=== PATIENT | female | born 1930 | race Caucasian/White ===

== ENCOUNTER 2021-02-27 16:24 | Observation (INO) | payer MEDICARE, OTHER ==
[2021-02-27] MEDS ORDERED: EPINEPHrine 1:10,000 1 MG/10 ML Syringe IVPUSH PRN (16:51)
[2021-02-27] MEDS ORDERED: Lidocaine 2% 100 MG/5 ML Syringe IVPUSH PRN (16:51)
[2021-02-27] MEDS ORDERED: Nitroglycerin 0.4 MG Tab.SL SL PRN (16:51)
[2021-02-27] MEDS ORDERED: Atropine 0.1 MG/ML 10 ML Syringe IVPUSH PRN (16:51)
[2021-02-27] MEDS ORDERED: Iopamidol 755 Mg/ML 75 ML Bottle IVPUSH ONE (17:22)
[2021-02-27] MEDS ORDERED: Sodium Chloride 0.9% 50 ML IV SCH (17:30)
--- NOTE | 2021-02-27 17:34 | CT ---
[id number] CT/CT Abdomen Pelvis W IV EXAM: CT Abdomen Pelvis W IV CLINICAL DATA: ABDOMINAL PAIN COMPARISON: CORRELATION IS MADE WITH THE CAT SCAN OF MARCH 26, 2016 FINDINGS: Thickening of the wall of the right side of the large bowel is stable since the last CAT scan The liver and spleen are unremarkable There are heavy atheromatous calcifications The adrenals, kidneys, and pancreas are also unremarkable The gallbladder has been removed The mesenteric vessels demonstrate normal enhancement The pelvis shows no mass or adenopathy The uterus and ovaries have been removed There is diverticular disease of the large bowel without diverticulitis IMPRESSION: NO ACUTE PROCESS. Colten Mayes MD 02/27/21 [id number] Thank you for allowing us to participate in the care of your patient.
[2021-02-27] MEDS: Pantoprazole 40 MG Vial IVPUSH SCH (18:00)
[2021-02-27] MEDS: Sodium Chloride 0.9% 1,000 ML IV SCH (18:05)
[2021-02-27] MEDS ORDERED: Acetaminophen 325 MG Tab PO PRN (19:17)
--- NOTE | 2021-02-27 20:28 | CT ---
[id number] CT/CT Head WO IV EXAM: CT Head WO IV CLINICAL DATA: TRAUMA COMPARISON: CORRELATION IS MADE WITH FEBRUARY 03, 2016 FINDINGS: There is a stable parafalcine meningioma. There appear to surgical changes of the mastoid air cells and middle ear There is no hemorrhage or hydrocephalus. There are no extra-axial fluid collections. There are no sites of abnormal attenuation. IMPRESSION: NO PLAIN CT EVIDENCE OF ACUTE INTRACRANIAL PROCESS. Colten Mayes MD 02/27/212026 Thank you for allowing us to participate in the care of your patient.
[2021-02-28] MEDS: Pantoprazole 40 MG Vial IVPUSH SCH ×3 (06:04→17:40)
[2021-02-28] MEDS: Levothyroxine 100 MCG Tab **OWN MED PO SCH ×2 (06:04→06:29)
[2021-02-28] MEDS ORDERED: Levothyroxine 100 MCG Tab PO SCH (07:00)
[2021-02-28 08:31] LABS: ANION GAP 11.7 mmol/L (5-15); CHLORIDE,CL 101 mmol/L (98-107); SODIUM,NA 135 mmol/L (136-145)
[2021-02-28] MEDS ORDERED: Ferrous Sulfate 325 MG Tab PO SCH (08:36)
--- NOTE | 2021-02-28 09:12 | PCM.PN ---
- General Info Date of Service: 02/28/21 Functional Status: Reports: Pain Controlled, Tolerating Diet, Urinating. Denies: New Symptoms - Review of Systems General: Reports: Fatigue. Denies: Fever, Chills HEENT: Reports: Headaches (improved) Pulmonary: Reports: No Symptoms Cardiovascular: Reports: No Symptoms Gastrointestinal: Reports: Abdominal Pain (improved), Decreased Appetite (poor appetite recently, eating adequately today). Denies: Constipation, Nausea Genitourinary: Reports: No Symptoms. Denies: Dysuria, Frequency, Urgency, Hematuria, Flank Pain Musculoskeletal: Reports: No Symptoms Skin: Reports: Pallor Neurological: Reports: No Symptoms Psychiatric: Reports: No Symptoms - Patient Data Vitals - Most Recent: Last Vital Signs Temp 96.6 F L 02/28/21 06:22 Pulse 71 02/28/21 06:22 Resp 20 02/28/21 06:22 BP 109/57 L 02/28/21 06:22 Pulse Ox 94 L 02/28/21 06:22 Weight - Most Recent: 98 lb 8 oz I&O - Last 24 Hours: Intake & Output 02/27/21 02/28/21 02/28/21 22:59 06:59 14:59 Intake Total 780 856 Output Total 600 Balance 780 256 Lab Results Last 24 Hours: Laboratory Results - last 24 hr 02/27/21 02/27/21 02/27/21 Range/Units 16:35 17:00 19:05 WBC (5.00-10.00) 10^3/uL RBC (3.80-5.50) 10^6/uL Hgb (12.0-16.0) g/dL Hct (37.0-47.0) % MCV (82.0-92.0) fL MCH (27.0-31.0) pg MCHC (32.0-36.0) g/dL RDW (11.5-14.5) % Plt Count (150-400) 10^3/uL MPV (7.4-10.4) fL Immature Gran % (Auto) (0.0-5.0) % Neut % (Auto) (50.0-70.0) % Lymph % (Auto) (20.0-40.0) % [place] % (Auto) (2.0-8.0) % Eos % (Auto) (1.0-3.0) % Baso % (Auto) (0.0-1.0) % Neut # (Auto) (2.50-7.00) 10^3/uL Lymph # (Auto) (1.00-4.00) 10^3/uL [place] # (Auto) (0.10-0.80) 10^3/uL Eos # (Auto) (0.10-0.30) 10^3/uL Baso # (Auto) (0.00-0.10) 10^3/uL Immature Gran # (Auto) (0.00-0.50) 10^3/uL Elliptocytes PT (9.2-11.2) SEC INR (0.9-1.1) APTT (22.8-31.4) SEC Sodium (136-145) mmol/L Potassium (3.5-5.1) mmol/L Chloride (98-107) mmol/L Carbon Dioxide (21.0-32.0) mmol/L Anion Gap (5-15) mmol/L BUN (7-18) mg/dL Creatinine (0.51-1.17) mg/dL Est Cr Clr Drug Dosing mL/min Estimated GFR (MDRD) mL/min Glucose (70-140) mg/dL Calcium (8.7-10.3) mg/dL Specimen Type Urinvoid Urine Color Yellow (YELLOW) Urine Appearance Slightly cloudy H (CLEAR) Urine pH 6.0 (5.0-9.0) Ur Specific Sandwich 1.010 (1.005-1.030) Urine Protein Negative (NEGATIVE) mg/dL Urine Glucose (UA) Negative (NEGATIVE) mg/dL Urine Ketones Negative (NEGATIVE) mg/dL Urine Occult Blood Trace-intact H (NEGATIVE) Urine Nitrite Positive H (NEGATIVE) Urine Bilirubin Negative (NEGATIVE) Urine Urobilinogen 0.2 (0.2-1.0) E.U./dL Ur Leukocyte Esterase Negative (NEGATIVE) Urine RBC 0-5 (0-5) /HPF Urine WBC 20-30 H (0-5) /HPF Ur Epithelial Cells Moderate H /LPF Urine Bacteria Many H (NONE TO FEW) /HPF SARS CoV-2 RNA Rapid NOLAN Negative (NEGATIVE) Blood Type A POSITIVE Gel Antibody Screen Negative Crossmatch See Detail 02/27/21 02/28/21 02/28/21 Range/Units 22:55 08:00 08:00 WBC 4.92 L 4.44 L (5.00-10.00) 10^3/uL RBC 3.87 4.22 (3.80-5.50) 10^6/uL Hgb 7.6 L 8.2 L (12.0-16.0) g/dL Hct 25.1 L 27.2 L (37.0-47.0) % MCV 64.9 L D 64.5 L (82.0-92.0) fL MCH 19.6 L 19.4 L (27.0-31.0) pg MCHC 30.3 L 30.1 L (32.0-36.0) g/dL RDW 23.6 H 23.7 H (11.5-14.5) % Plt Count 341 366 (150-400) 10^3/uL MPV 9.0 9.3 (7.4-10.4) fL Immature Gran % (Auto) 0.0 0.0 (0.0-5.0) % Neut % (Auto) 64.3 52.8 (50.0-70.0) % Lymph % (Auto) 21.3 32.2 (20.0-40.0) % [place] % (Auto) 13.4 H 13.7 H (2.0-8.0) % Eos % (Auto) 0.0 L 0.2 L (1.0-3.0) % Baso % (Auto) 1.0 1.1 H (0.0-1.0) % Neut # (Auto) 3.16 2.34 L (2.50-7.00) 10^3/uL Lymph # (Auto) 1.05 1.43 (1.00-4.00) 10^3/uL [place] # (Auto) 0.66 0.61 (0.10-0.80) 10^3/uL Eos # (Auto) 0.00 L 0.01 L (0.10-0.30) 10^3/uL Baso # (Auto) 0.05 0.05 (0.00-0.10) 10^3/uL Immature Gran # (Auto) 0.00 0.00 (0.00-0.50) 10^3/uL Elliptocytes 1+ slight PT (9.2-11.2) SEC INR (0.9-1.1) APTT (22.8-31.4) SEC Sodium 135 L (136-145) mmol/L Potassium 3.5 (3.5-5.1) mmol/L Chloride 101 (98-107) mmol/L Carbon Dioxide 25.8 (21.0-32.0) mmol/L Anion Gap 11.7 (5-15) mmol/L BUN 8 (7-18) mg/dL Creatinine 0.66 (0.51-1.17) mg/dL Est Cr Clr Drug Dosing 41.56 mL/min Estimated GFR (MDRD) > 60 mL/min Glucose 99 (70-140) mg/dL Calcium 7.5 L (8.7-10.3) mg/dL Specimen Type Urine Color (YELLOW) Urine Appearance (CLEAR) Urine pH (5.0-9.0) Ur Specific Sandwich (1.005-1.030) Urine Protein (NEGATIVE) mg/dL Urine Glucose (UA) (NEGATIVE) mg/dL Urine Ketones (NEGATIVE) mg/dL Urine Occult Blood (NEGATIVE) Urine Nitrite (NEGATIVE) Urine Bilirubin (NEGATIVE) Urine Urobilinogen (0.2-1.0) E.U./dL Ur Leukocyte Esterase (NEGATIVE) Urine RBC (0-5) /HPF Urine WBC (0-5) /HPF Ur Epithelial Cells /LPF Urine Bacteria (NONE TO FEW) /HPF SARS CoV-2 RNA Rapid NOLAN (NEGATIVE) Blood Type Gel Antibody Screen Crossmatch 02/28/21 02/28/21 Range/Units 08:00 08:00 WBC (5.00-10.00) 10^3/uL RBC (3.80-5.50) 10^6/uL Hgb (12.0-16.0) g/dL Hct (37.0-47.0) % MCV (82.0-92.0) fL MCH (27.0-31.0) pg MCHC (32.0-36.0) g/dL RDW (11.5-14.5) % Plt Count (150-400) 10^3/uL MPV (7.4-10.4) fL Immature Gran % (Auto) (0.0-5.0) % Neut % (Auto) (50.0-70.0) % Lymph % (Auto) (20.0-40.0) % [place] % (Auto) (2.0-8.0) % Eos % (Auto) (1.0-3.0) % Baso % (Auto) (0.0-1.0) % Neut # (Auto) (2.50-7.00) 10^3/uL Lymph # (Auto) (1.00-4.00) 10^3/uL [place] # (Auto) (0.10-0.80) 10^3/uL Eos # (Auto) (0.10-0.30) 10^3/uL Baso # (Auto) (0.00-0.10) 10^3/uL Immature Gran # (Auto) (0.00-0.50) 10^3/uL Elliptocytes PT 9.8 (9.2-11.2) SEC INR 1.0 (0.9-1.1) APTT 25.2 (22.8-31.4) SEC Sodium (136-145) mmol/L Potassium (3.5-5.1) mmol/L Chloride (98-107) mmol/L Carbon Dioxide (21.0-32.0) mmol/L Anion Gap (5-15) mmol/L BUN (7-18) mg/dL Creatinine (0.51-1.17) mg/dL Est Cr Clr Drug Dosing mL/min Estimated GFR (MDRD) mL/min Glucose (70-140) mg/dL Calcium (8.7-10.3) mg/dL Specimen Type Urine Color (YELLOW) Urine Appearance (CLEAR) Urine pH (5.0-9.0) Ur Specific Sandwich (1.005-1.030) Urine Protein (NEGATIVE) mg/dL Urine Glucose (UA) (NEGATIVE) mg/dL Urine Ketones (NEGATIVE) mg/dL Urine Occult Blood (NEGATIVE) Urine Nitrite (NEGATIVE) Urine Bilirubin (NEGATIVE) Urine Urobilinogen (0.2-1.0) E.U./dL Ur Leukocyte Esterase (NEGATIVE) Urine RBC (0-5) /HPF Urine WBC (0-5) /HPF Ur Epithelial Cells /LPF Urine Bacteria (NONE TO FEW) /HPF SARS CoV-2 RNA Rapid NOLAN (NEGATIVE) Blood Type Gel Antibody Screen Crossmatch Med Orders - Current: Current Medications Acetaminophen (Acetaminophen 325 Mg Tab) 650 mg PO Q4H PRN PRN Reason: Headache/Pain Last Admin: 02/27/21 19:45 Dose: 650 mg Documented by: Atropine Sulfate (Atropine 0.1 Mg/Ml 10 Ml Syringe) 0 mg IVPUSH ASDIRECTED PRN PRN Reason: Heart. Epinephrine HCl (Epinephrine 1:10,000 1 Mg/10 Ml Syringe) 1 mg IVPUSH ASDIRECTED PRN PRN Reason: Heart. Ferrous Sulfate (Ferrous Sulfate 325 Mg Tab) 325 mg PO WITHBREAKFAST [facility] Sodium Chloride (Normal Saline) 1,000 mls @ 75 mls/hr IV ASDIRECTED LUIS Last Admin: 02/27/21 18:05 Dose: 75 mls/hr Documented by: Sodium Chloride (Normal Saline) 50 mls @ 200 mls/hr IV ASDIRECTED [facility] Last Admin: 02/27/21 17:38 Dose: 200 mls/hr Documented by: Levothyroxine Sodium (Levothyroxine 100 Mcg Tab) 100 mcg PO ACBREAKFAST [facility] Lidocaine HCl (Lidocaine 2% 100 Mg/5 Ml Syringe) 0 mg IVPUSH ASDIRECTED PRN PRN Reason: Heart. Nitroglycerin (Nitroglycerin 0.4 Mg Tab.Sl) 0.4 mg SL ASDIRECTED PRN PRN Reason: Heart. Pantoprazole Sodium (Pantoprazole 40 Mg Vial) 40 mg IVPUSH BIDAC [facility] Last Admin: 02/28/21 06:29 Dose: Not Given Documented by: Senna/Docusate Sodium (Docusate Sodium/Sennosides 50-8.6 Mg Tab) 1 tab PO DAILY [facility] Discontinued Medications Iopamidol (Iopamidol 755 Mg/Ml 75 Ml Bottle) 75 ml IVPUSH ONETIME ONE Stop: 02/27/21 17:23 Last Admin: 02/27/21 17:38 Dose: 75 ml Documented by: Levothyroxine Sodium (Levothyroxine 100 Mcg Tab) 100 mcg PO ACBREAKFAST [facility] Levothyroxine Sodium (Levothyroxine 100 Mcg Tab Own Med) 100 mcg PO ACBREAKFAST [facility] Last Admin: 02/28/21 06:29 Dose: Not Given Documented by: - Exam Quality Assessment: No: Supplemental Oxygen General: Alert (at baseline), Cooperative, No Acute Distress HEENT: Pupils Equal, Mucous Membr. Moist/[place] Neck: Supple Lungs: Clear to Auscultation, Normal Respiratory Effort. No: Crackles, Rales, Rhonchi, Wheezing Cardiovascular: Regular Rate, Regular Rhythm, No Murmurs GI/Abdominal Exam: Normal Bowel Sounds, Soft, No Distention, Tender (mild to epigastrum) (Female) Exam: Deferred Back Exam: Normal Inspection, Full Range of Motion Extremities: Normal Inspection, Normal Range of Motion, Non-Tender, No Pedal Edema, Normal Capillary Refill Peripheral Pulses: 2+: Dorsalis Pedis (L), Dorsalis Pedis (R) Skin: Warm, Dry, Intact, Other (pallor) Neurological: No New Focal Deficit Psy/Mental Status: Alert, Normal Affect, Normal Mood - Patient Data Lab Results Last 24 hrs: Laboratory Results - last 24 hr 02/27/21 02/27/21 02/27/21 Range/Units 16:35 17:00 19:05 WBC (5.00-10.00) 10^3/uL RBC (3.80-5.50) 10^6/uL Hgb (12.0-16.0) g/dL Hct (37.0-47.0) % MCV (82.0-92.0) fL MCH (27.0-31.0) pg MCHC (32.0-36.0) g/dL RDW (11.5-14.5) % Plt Count (150-400) 10^3/uL MPV (7.4-10.4) fL Immature Gran % (Auto) (0.0-5.0) % Neut % (Auto) (50.0-70.0) % Lymph % (Auto) (20.0-40.0) % [place] % (Auto) (2.0-8.0) % Eos % (Auto) (1.0-3.0) % Baso % (Auto) (0.0-1.0) % Neut # (Auto) (2.50-7.00) 10^3/uL Lymph # (Auto) (1.00-4.00) 10^3/uL [place] # (Auto) (0.10-0.80) 10^3/uL Eos # (Auto) (0.10-0.30) 10^3/uL Baso # (Auto) (0.00-0.10) 10^3/uL Immature Gran # (Auto) (0.00-0.50) 10^3/uL Elliptocytes PT (9.2-11.2) SEC INR (0.9-1.1) APTT (22.8-31.4) SEC Sodium (136-145) mmol/L Potassium (3.5-5.1) mmol/L Chloride (98-107) mmol/L Carbon Dioxide (21.0-32.0) mmol/L Anion Gap (5-15) mmol/L BUN (7-18) mg/dL Creatinine (0.51-1.17) mg/dL Est Cr Clr Drug Dosing mL/min Estimated GFR (MDRD) mL/min Glucose (70-140) mg/dL Calcium (8.7-10.3) mg/dL Specimen Type Urinvoid Urine Color Yellow (YELLOW) Urine Appearance Slightly cloudy H (CLEAR) Urine pH 6.0 (5.0-9.0) Ur Specific [place] 1.010 (1.005-1.030) Urine Protein Negative (NEGATIVE) mg/dL Urine Glucose (UA) Negative (NEGATIVE) mg/dL Urine Ketones Negative (NEGATIVE) mg/dL Urine Occult Blood Trace-intact H (NEGATIVE) Urine Nitrite Positive H (NEGATIVE) Urine Bilirubin Negative (NEGATIVE) Urine Urobilinogen 0.2 (0.2-1.0) E.U./dL Ur Leukocyte Esterase Negative (NEGATIVE) Urine RBC 0-5 (0-5) /HPF Urine WBC 20-30 H (0-5) /HPF Ur Epithelial Cells Moderate H /LPF Urine Bacteria Many H (NONE TO FEW) /HPF SARS CoV-2 RNA Rapid NOLAN Negative (NEGATIVE) Blood Type A POSITIVE Gel Antibody Screen Negative Crossmatch See Detail 02/27/21 02/28/21 02/28/21 Range/Units 22:55 08:00 08:00 WBC 4.92 L 4.44 L (5.00-10.00) 10^3/uL RBC 3.87 4.22 (3.80-5.50) 10^6/uL Hgb 7.6 L 8.2 L (12.0-16.0) g/dL Hct 25.1 L 27.2 L (37.0-47.0) % MCV 64.9 L D 64.5 L (82.0-92.0) fL MCH 19.6 L 19.4 L (27.0-31.0) pg MCHC 30.3 L 30.1 L (32.0-36.0) g/dL RDW 23.6 H 23.7 H (11.5-14.5) % Plt Count 341 366 (150-400) 10^3/uL MPV 9.0 9.3 (7.4-10.4) fL Immature Gran % (Auto) 0.0 0.0 (0.0-5.0) % Neut % (Auto) 64.3 52.8 (50.0-70.0) % Lymph % (Auto) 21.3 32.2 (20.0-40.0) % [place] % (Auto) 13.4 H 13.7 H (2.0-8.0) % Eos % (Auto) 0.0 L 0.2 L (1.0-3.0) % Baso % (Auto) 1.0 1.1 H (0.0-1.0) % Neut # (Auto) 3.16 2.34 L (2.50-7.00) 10^3/uL Lymph # (Auto) 1.05 1.43 (1.00-4.00) 10^3/uL [place] # (Auto) 0.66 0.61 (0.10-0.80) 10^3/uL Eos # (Auto) 0.00 L 0.01 L (0.10-0.30) 10^3/uL Baso # (Auto) 0.05 0.05 (0.00-0.10) 10^3/uL Immature Gran # (Auto) 0.00 0.00 (0.00-0.50) 10^3/uL Elliptocytes 1+ slight PT (9.2-11.2) SEC INR (0.9-1.1) APTT (22.8-31.4) SEC Sodium 135 L (136-145) mmol/L Potassium 3.5 (3.5-5.1) mmol/L Chloride 101 (98-107) mmol/L Carbon Dioxide 25.8 (21.0-32.0) mmol/L Anion Gap 11.7 (5-15) mmol/L BUN 8 (7-18) mg/dL Creatinine 0.66 (0.51-1.17) mg/dL Est Cr Clr Drug Dosing 41.56 mL/min Estimated GFR (MDRD) > 60 mL/min Glucose 99 (70-140) mg/dL Calcium 7.5 L (8.7-10.3) mg/dL Specimen Type Urine Color (YELLOW) Urine Appearance (CLEAR) Urine pH (5.0-9.0) Ur Specific [place] (1.005-1.030) Urine Protein (NEGATIVE) mg/dL Urine Glucose (UA) (NEGATIVE) mg/dL Urine Ketones (NEGATIVE) mg/dL Urine Occult Blood (NEGATIVE) Urine Nitrite (NEGATIVE) Urine Bilirubin (NEGATIVE) Urine Urobilinogen (0.2-1.0) E.U./dL Ur Leukocyte Esterase (NEGATIVE) Urine RBC (0-5) /HPF Urine WBC (0-5) /HPF Ur Epithelial Cells /LPF Urine Bacteria (NONE TO FEW) /HPF SARS CoV-2 RNA Rapid NOLAN (NEGATIVE) Blood Type Gel Antibody Screen Crossmatch 02/28/21 02/28/21 Range/Units 08:00 08:00 WBC (5.00-10.00) 10^3/uL RBC (3.80-5.50) 10^6/uL Hgb (12.0-16.0) g/dL Hct (37.0-47.0) % MCV (82.0-92.0) fL MCH (27.0-31.0) pg MCHC (32.0-36.0) g/dL RDW (11.5-14.5) % Plt Count (150-400) 10^3/uL MPV (7.4-10.4) fL Immature Gran % (Auto) (0.0-5.0) % Neut % (Auto) (50.0-70.0) % Lymph % (Auto) (20.0-40.0) % [place] % (Auto) (2.0-8.0) % Eos % (Auto) (1.0-3.0) % Baso % (Auto) (0.0-1.0) % Neut # (Auto) (2.50-7.00) 10^3/uL Lymph # (Auto) (1.00-4.00) 10^3/uL [place] # (Auto) (0.10-0.80) 10^3/uL Eos # (Auto) (0.10-0.30) 10^3/uL Baso # (Auto) (0.00-0.10) 10^3/uL Immature Gran # (Auto) (0.00-0.50) 10^3/uL Elliptocytes PT 9.8 (9.2-11.2) SEC INR 1.0 (0.9-1.1) APTT 25.2 (22.8-31.4) SEC Sodium (136-145) mmol/L Potassium (3.5-5.1) mmol/L Chloride (98-107) mmol/L Carbon Dioxide (21.0-32.0) mmol/L Anion Gap (5-15) mmol/L BUN (7-18) mg/dL Creatinine (0.51-1.17) mg/dL Est Cr Clr Drug Dosing mL/min Estimated GFR (MDRD) mL/min Glucose (70-140) mg/dL Calcium (8.7-10.3) mg/dL Specimen Type Urine Color (YELLOW) Urine Appearance (CLEAR) Urine pH (5.0-9.0) Ur Specific [place] (1.005-1.030) Urine Protein (NEGATIVE) mg/dL Urine Glucose (UA) (NEGATIVE) mg/dL Urine Ketones (NEGATIVE) mg/dL Urine Occult Blood (NEGATIVE) Urine Nitrite (NEGATIVE) Urine Bilirubin (NEGATIVE) Urine Urobilinogen (0.2-1.0) E.U./dL Ur Leukocyte Esterase (NEGATIVE) Urine RBC (0-5) /HPF Urine WBC (0-5) /HPF Ur Epithelial Cells /LPF Urine Bacteria (NONE TO FEW) /HPF SARS CoV-2 RNA Rapid NOLAN (NEGATIVE) Blood Type Gel Antibody Screen Crossmatch Result Diagrams: 02/28/21 08:00 02/28/21 08:00 Sepsis Event Note - Evaluation Sepsis Screening Result: No Definite Risk - Focused Exam Vital Signs: Vital Signs Temp Temp Pulse Resp BP Pulse Ox 02/28/21 06:22 96.6 F L 71 20 109/57 L 94 L 02/28/21 03:00 97.9 F 72 20 113/61 96 02/27/21 21:53 98.4 F 77 18 118/59 L 95 - Problem List Review Problem List Initiated/Reviewed/Updated: Yes - My Orders Last 24 Hours: My Active Orders 02/27/21 19:17 Acetaminophen [TylenoL] 650 mg PO Q4H PRN 02/28/21 Breakfast Regular Diet [DIET] 02/28/21 08:36 Ferrous Sulfate 325 mg PO WITHBREAKFAST 02/28/21 08:39 CULTURE URINE [RM] Routine 02/28/21 09:00 Docusate Sodium/Sennosides [Senna Plus] 1 tab PO DAILY 03/01/21 07:30 Levothyroxine [Synthroid] 100 mcg PO ACBREAKFAST - Plan Plan:: HPI summary: Vonda is an 89y F patient who presented to the [facility] yesterday afternoon for evaluation of a possible abdominal mass reported by a hospice nurse who a daughter brought in for an initial evaluation. Patient has history of right renal carcinoma and MGUS and had refused any further treatment as of 03/08/18. Baylee from [facility] manages patients medications. Last in-clinic evaluation was 08/30/19, patient has lost 13 pounds since that visit. Last documented CBC was 03/21/19 with a Hgb of 14.3, MCV 95.4 at that time. Patient has known history of iron deficiency anemia and was previously on oral supplementation for this. She has not been taking this recently per current medications. In clinic she reported intermittent abdominal pain for at least the past two months, worse symptoms over the past few days. She has had a poor appetite and has vomited intermittently with one emesis on (02/26). Patient denied any blood in the stool. Labs obtained in clinic indicating anemia, Hgb of 6.4, microcytosis with MCV 60.8. Renal function stable BUN 14, creatinine 0.77. Patient to be directly admitted to [facility] on observation status due to anemia R/O GI bleed with telemetry for tranfusion of 1 unit PRBC, CT abdomen/pelvis with IV contrast. Hospital course: 02/28/21 - Patient reportedly fell last evening in the bathroom and had bumped her head on the wall. She complained of a headache and had a slight lump on her head per nursing. A head CT was obtained out of an abundance of caution and this was normal. Patient was given APAP for headache with improvement. Repeat Hgb 7.6 one hour after transfusion, no indication for repeat transfusion, CBC in am. UA indicative of possible UTI with many bacteria and WBC 20-30, this was not a clean catch and moderate epithelial cells noted - patient denies any urinary symptoms; suspect asymptomatic bacteruria. Urine culture pending. Occult stool pending. Iron studies completed at [place] (02/27) indicate s ignificant iron deficiency with total iron of 12, Fe saturation of 2%, ferritin of 4. Will start patient on PO Fe supplementation with close monitoring and consideration for IV Fe if Hgb does not improve with QOD dosing of PO on outpatient basis. Tolerating regular diet well without nausea. CBC, BMP in am. Hospitalization problems and plan: # Lower abdominal pain; improved. CT abdomen pelvis was negative for acute process. Prior wall thickening of the colon unchanged from previous imaging. # low hemoglobin; initial result of 6.4 in clinic; improved to 8.2 this am. # Fe deficiency anemia with microcytosis - see iron study results above - Start ferrous sulfate 325mg PO QOD today for iron deficiency anemia - Continue protonix 40mg IV BID, consider continuing PPI PO at discharge - Occult stool negative x1, will repeat x 2 for confirmation - Consider EGD/Colonoscopy if occult stool positive for further evaluation if desired per patient/family - Repeat CBC in am Chronic, stable conditions: # HTN - stable; On losartan 100 mg daily, norvasc 7.5 mg daily. BP 109/57 this morning, will hold BP meds for now. # Hypothyroidism: Continue levothyroxine 100 mcg daily. TSH 1.34 (02/27/21) # HLD - stable, no current medications; total cholesterol 168, LDL 93 (02/27/21) # Chronic constipation: Continue Senna+ 1 tab daily, hold for diarrhea. # Cognitive impairment. # Hx of Elevated LFTs; resolved. Normal results of AST 27, ALT 16 (02/27/21) # History of right kidney neoplasm. # Hx of MGUS. Had been evaluated byDr. Phan, heme/onc,declined any further work-up or monitoring as of 2018. Hospitalization details: # FEN: NS @ 75ml/hr, electrolytes stable, regular diet as tolerated # PPX: on protonix BID for possible GI bleed # Code status: DNR/DNI # Emergency contact: Daughter Erin [phone]; daughterShama updated at bedside # Disposition: Will maintain observation status today for further evaluation for possible GI bleed including stool for occult blood as well as repeat Hgb. Likely discharge home tomorrow.
[2021-02-28] MEDS: Sodium Chloride 0.9% 1,000 ML IV SCH (09:14)
[2021-03-01] MEDS: Pantoprazole 40 MG Vial IVPUSH SCH ×2 (06:23→06:30)
[2021-03-01] MEDS: Levothyroxine 100 MCG Tab **OWN MED PO SCH ×2 (06:23→06:30)
[2021-03-01 06:30] VITALS: BP 132/57; PULSE 83
[2021-03-01] MEDS ORDERED: Levothyroxine 100 MCG Tab PO SCH (07:30)
[2021-03-01 08:41] LABS: ANION GAP 8.8 mmol/L (5-15); CHLORIDE,CL 102 mmol/L (98-107); SODIUM,NA 135 mmol/L (136-145)
[2021-03-01] MEDS ORDERED: Potassium Chloride 20 MEQ Tab.ER PO ONE (08:58)
[2021-03-01] MEDS ORDERED: Docusate Sodium/Sennosides 50-8.6 MG Tab **OWN MED PO SCH (09:00)
--- NOTE | 2021-03-01 10:41 | PCM.DCSUM1 ---
Discharge Summary - Hospital Course Free Text/Narrative:: Date of admission: 02/27/21 Date of discharge: 03/01/21 Admission diagnoses: # lower abdominal pain # low hemoglobin # Fe deficiency anemia with microcytosis Discharge diagnoses: # HTN - stable; On losartan 100 mg daily, norvasc 7.5 mg daily. BP 109/57 this morning, will hold BP meds for now. # Hypothyroidism: Continue levothyroxine 100 mcg daily. TSH 1.34 (02/27/21) # HLD - stable, no current medications; total cholesterol 168, LDL 93 (02/27/21) # Iron deficiency anemia with microcystosis - started on ferrous sulfate 325mg PO QOD # UTI - 5 day course of macrobid started based on prelim culture results, previously suspected asx bacteruria # Chronic constipation: Continue Senna+ 1 tab daily, hold for diarrhea. # Cognitive impairment # Hx of Elevated LFTs; resolved. Normal results of AST 27, ALT 16 (02/27/21) # History of right kidney neoplasm. # Hx of MGUS. Had been evaluated byDr. Phan heme/onc,declined any further work-up or monitoring as of 2018. Hospital course: HPI summary: Vonda is an 89y F patient who presented to the [facility] yesterday afternoon for evaluation of a possible abdominal mass reported by a hospice nurse who a daughter brought in for an initial evaluation. Patient has history of right renal carcinoma and MGUS and had refused any further treatment as of 03/08/18. Baylee from [employer] manages patients medications. Last in-clinic evaluation was 08/30/19, patient has lost 13 pounds since that visit. Last documented CBC was 03/21/19 with a Hgb of 14.3, MCV 95.4 at that time. Patient has known history of iron deficiency anemia and was previously on oral supplementation for this. She has not been taking this recently per current medications. In clinic she reported intermittent abdominal pain for at least the past two months, worse symptoms over the past few days. She has had a poor appetite and has vomited intermittently with one emesis on (02/26). Patient denied any blood in the stool. Labs obtained in clinic indicating anemia, Hgb of 6.4, microcytosis with MCV 60.8. Renal function stable BUN 14, creatinine 0.77. Patient to be directly admitted to [facility] on observation status due to anemia R/O GI bleed with telemetry for tranfusion of 1 unit PRBC, CT abdomen/pelvis with IV contrast. 02/28/21 - Patient fell in the bathroom and had bumped her head on the wall. Head CT obtained with normal results. Repeat Hgb 7.6 one hour after transfusion. UA indicative of possible UTI with many bacteria and WBC 20-30, this was not a clean catch and moderate epithelial cells noted - patient denies any urinary symptoms; suspect asymptomatic bacteruria. Urine culture pending. Occult stool pending. Iron studies completed at [place] (02/27) indicate significant iron deficiency with total iron of 12, Fe saturation of 2%, ferritin of 4. Patient started on PO Fe supplementation. Tolerating regular diet well without nausea. CBC, BMP in am. 03/01/21 - Patient offers no complaints. No headache. Denies dysuria, frequency, urgency of urination. "Pressure" reported on palpation of the lower abdomen, denies overt tenderness. Preliminary urine culture resulted with >100,000 gm negative rods. Patient started on course of macrobid while final culture and sensitivity reports are pending. Hgb 7.7 this am. Orthostatic vital signs negative. Will continue ferrous sulfate 325mg PO QOD upon discharge with close monitoring of Hgb and response to oral formulation. Consider IM or IV iron for lack of response to oral iron supplementation. Plan to continue pantoprazole 20mg PO daily upon discharge. Initial stool specimen for occult blood was negative in hospital, will repeat x2 as outpatient. If occult stool testing is positive, recommend EGD/colonoscopy for further evaluation of source of GI bleeding if identified once Hgb improves to 9.5-10.0. Mild hypokalemia with K of 3.4, replaced orally. Discharge and follow-up recommendations: - Discharge to home per self care with family support, [facility] - New medications at discharge: pantoprazole 20mg PO daily, ferrous sulfate 325mg QOD, nitrofurantoin 100mg PO BID x 5 days. Aleve discontinued, losartan and amlodipine on hold upon discharge. Will plan to restart as indicated. - Follow-up with Shalonda Cerda APRN, [employer] or Dr Garcia tomorrow morning 03/02/21 at [facility] (with repeat labs). - Discharge Data Discharge Date: 03/01/21 Discharge Disposition: Home, Self-Care 01 Condition: Fair - Referral to Home Health Primary Care Physician: Ana Sanchez MD - Patient Summary/Data Consults: Consultations 02/27/21 16:51 Consult to Case Management/Eyelet Machine Operator [CONS] Routine - Patient Instructions Diet: Usual Diet as Tolerated Driving: Do Not Drive Showering/Bathing: May Shower - Discharge Plan *PRESCRIPTION DRUG MONITORING PROGRAM REVIEWED*: Not Applicable *COPY OF PRESCRIPTION DRUG MONITORING REPORT IN PATIENT JAMES: Not Applicable Prescriptions/Med Rec: Ferrous Sulfate 325 mg PO Q48H 30 Days tablet Nitrofurantoin Costilla/Macrocryst [Nitrofurantoin Costilla-MCR] 100 mg PO BID #10 cap Pantoprazole Sodium [Protonix] 20 mg PO DAILY #30 tablet. Home Medications: Home Meds Docusate Sodium/Sennosides [Senna Plus] 1 tab PO DAILY 02/27/21 [History] Levothyroxine [Synthroid] 100 mcg PO ACBREAKFAST 02/27/21 [History] Multivit-Min/FA/Lycopen/Lutein [Sentry Senior Tablet] 1 tab PO DAILY 02/27/21 [History] Acetaminophen [Tylenol] 650 mg PO Q4H PRN tablet 03/01/21 [Rx] Ferrous Sulfate 325 mg PO Q48H 30 Days tablet 03/01/21 [Rx] Nitrofurantoin Costilla/Macrocryst [Nitrofurantoin Costilla-MCR] 100 mg PO BID #10 cap 03/01/21 [Rx] Pantoprazole Sodium [Protonix] 20 mg PO DAILY #30 tablet. 03/01/21 [Rx] Oxygen Therapy Mode: Room Air Referrals: Shalonda Cerda NP [Nurse Practitioner] - 03/02/21 (Follow-up at [facility] on Tuesday, March 02 for repeat labs and follow-up) Hailey Gonzalez MD [Physician] - - Discharge Summary/Plan Comment DC Time >30 min.: Yes - Patient Data Vitals - Most Recent: Last Vital Signs Temp 98.2 F 03/01/21 06:29 Pulse 83 03/01/21 06:29 Resp 18 03/01/21 06:29 BP 132/57 L 03/01/21 06:29 Pulse Ox 98 03/01/21 08:47 Orthostatic Blood Pressure [ 148/76 Standing] Orthostatic Blood Pressure [ 146/74 Sitting] Orthostatic Blood Pressure [ 127/67 Supine] Weight - Most Recent: 98 lb 8 oz I&O - Last 24 hours: Intake & Output 02/28/21 03/01/21 03/01/21 22:59 06:59 14:59 Intake Total 1591 350 Output Total 1750 1250 Balance -159 -900 Lab Results - Last 24 hrs: Laboratory Results - last 24 hr 03/01/21 03/01/21 Range/Units 07:15 07:15 WBC 4.69 L (5.00-10.00) 10^3/uL RBC 4.03 (3.80-5.50) 10^6/uL Hgb 7.7 L (12.0-16.0) g/dL Hct 25.9 L (37.0-47.0) % MCV 64.3 L (82.0-92.0) fL MCH 19.1 L (27.0-31.0) pg MCHC 29.7 L (32.0-36.0) g/dL RDW 24.0 H (11.5-14.5) % Plt Count 350 (150-400) 10^3/uL MPV 8.6 (7.4-10.4) fL Immature Gran % (Auto) 0.0 (0.0-5.0) % Neut % (Auto) 61.2 (50.0-70.0) % Lymph % (Auto) 26.0 (20.0-40.0) % Costilla % (Auto) 11.5 H (2.0-8.0) % Eos % (Auto) 0.0 L (1.0-3.0) % Baso % (Auto) 1.3 H (0.0-1.0) % Neut # (Auto) 2.87 (2.50-7.00) 10^3/uL Lymph # (Auto) 1.22 (1.00-4.00) 10^3/uL Cost[place] # (Auto) 0.54 (0.10-0.80) 10^3/uL Eos # (Auto) 0.00 L (0.10-0.30) 10^3/uL Baso # (Auto) 0.06 (0.00-0.10) 10^3/uL Immature Gran # (Auto) 0.00 (0.00-0.50) 10^3/uL Sodium 135 L (136-145) mmol/L Potassium 3.4 L (3.5-5.1) mmol/L Chloride 102 (98-107) mmol/L Carbon Dioxide 27.6 (21.0-32.0) mmol/L Anion Gap 8.8 (5-15) mmol/L BUN 10 (7-18) mg/dL Creatinine 0.68 (0.51-1.17) mg/dL Est Cr Clr Drug Dosing 40.34 mL/min Estimated GFR (MDRD) > 60 mL/min Glucose 101 (70-140) mg/dL Calcium 7.6 L (8.7-10.3) mg/dL [facility] Results - Last 24 hrs: Microbiology 02/27/21 19:05 Urine Culture - Final Urine, Voided 02/28/21 09:05 Stool Occult Blood ([facility]ANCA) - Final Stool / Feces NEGATIVE OCCULT BLOOD REFERENCE RANGE: NEGATIVE Med Orders - Current: Current Medications Acetaminophen (Acetaminophen 325 Mg Tab) 650 mg PO Q4H PRN PRN Reason: Headache/Pain Last Admin: 02/27/21 19:45 Dose: 650 mg Documented by: Atropine Sulfate (Atropine 0.1 Mg/Ml 10 Ml Syringe) 0 mg IVPUSH ASDIRECTED PRN PRN Reason: Heart. Epinephrine HCl (Epinephrine 1:10,000 1 Mg/10 Ml Syringe) 1 mg IVPUSH ASDIRECTED PRN PRN Reason: Heart. Ferrous Sulfate (Ferrous Sulfate 325 Mg Tab) 325 mg PO Q48H [facility] Levothyroxine Sodium (Levothyroxine 100 Mcg Tab Own Med) 100 mcg PO ACBREAKFAST [facility] Last Admin: 03/01/21 06:30 Dose: Not Given Documented by: Lidocaine HCl (Lidocaine 2% 100 Mg/5 Ml Syringe) 0 mg IVPUSH ASDIRECTED PRN PRN Reason: Heart. Nitroglycerin (Nitroglycerin 0.4 Mg Tab.Sl) 0.4 mg SL ASDIRECTED PRN PRN Reason: Heart. Pantoprazole Sodium (Pantoprazole 40 Mg Vial) 40 mg IVPUSH BIDAC [facility] Last Admin: 03/01/21 06:30 Dose: Not Given Documented by: Senna/Docusate Sodium (Docusate Sodium/Sennosides 50-8.6 Mg Tab Own Med) 1 tab PO DAILY [facility] Last Admin: 03/01/21 08:47 Dose: 1 tab Documented by: Discontinued Medications Ferrous Sulfate (Ferrous Sulfate 325 Mg Tab) 325 mg PO WITHBREAKFAST [facility] Last Admin: 02/28/21 09:14 Dose: 325 mg Documented by: Sodium Chloride (Normal Saline) 1,000 mls @ 75 mls/hr IV ASDIRECTED [facility] Last Admin: 02/28/21 09:14 Dose: 75 mls/hr Documented by: Sodium Chloride (Normal Saline) 50 mls @ 200 mls/hr IV ASDIRECTED [facility] Last Admin: 02/27/21 17:38 Dose: 200 mls/hr Documented by: Iopamidol (Iopamidol 755 Mg/Ml 75 Ml Bottle) 75 ml IVPUSH ONETIME ONE Stop: 02/27/21 17:23 Last Admin: 02/27/21 17:38 Dose: 75 ml Documented by: Levothyroxine Sodium (Levothyroxine 100 Mcg Tab) 100 mcg PO ACBREAKFAST [facility] Levothyroxine Sodium (Levothyroxine 100 Mcg Tab Own Med) 100 mcg PO ACBREAKFAST [facility] Last Admin: 02/28/21 06:29 Dose: Not Given Documented by: Levothyroxine Sodium (Levothyroxine 100 Mcg Tab) 100 mcg PO ACBREAKFAST [facility] Potassium Chloride (Potassium Chloride 20 Meq Tab.Er) 20 meq PO ONETIME ONE Stop: 03/01/21 08:59 Last Admin: 03/01/21 09:38 Dose: 20 meq Documented by: Senna/Docusate Sodium (Docusate Sodium/Sennosides 50-8.6 Mg Tab) 1 tab PO DAILY [facility] Last Admin: 02/28/21 09:00 Dose: Not Given Documented by:
[2021-03-01] MEDS ORDERED: Nitrofurantoin Monohydrate/Macrocrystalline 100 MG Cap PO SCH ×2 (11:00→21:00)
[2021-03-02] MEDS ORDERED: Ferrous Sulfate 325 MG Tab PO SCH (08:00)
== END 2021-03-01 11:54 | disposition home or self-care (01) ==
LOC: KA.MS 16:46 → INTOOBSV 16:46
PROVIDERS: ADMIT Nurse Practitioner Family; ATTEND Family Medicine
DX: R10.30 Lower abdominal pain, unspecified (principal); I10 Essential (primary) hypertension; E03.9 Hypothyroidism, unspecified; E78.5 Hyperlipidemia, unspecified; D50.9 Iron deficiency anemia, unspecified; N39.0 Urinary tract infection, site not specified; K59.09 Other constipation; G31.84 Mild cognitive impairment of uncertain or unknown etiology; R79.89 Other specified abnormal findings of blood chemistry; Z85.528 Personal history of other malignant neoplasm of kidney; Z20.822 Contact with and (suspected) exposure to COVID-19
CPT/HCPCS: 36415; 36430; 70450; 74177; 80048; 81001; 82272; 85025; 85610; 85730; 86850; 86900; 86901; 86920; 86922; 87086; 87088; 87186; 96374; 96376; A9270-GY; C9113; G0378; J7030; P9016; Q9967; U0002

== ENCOUNTER 2021-11-05 16:54 | Emergency (ER) | payer MEDICARE, OTHER ==
[2021-11-05 17:18] VITALS: BP 190/89; PULSE 103
[2021-11-05] MEDS: Sodium Chloride 0.9% 1,000 ML IV SCH (17:31)
[2021-11-05] MEDS: Morphine 2 MG/ML SYRINGE IVPUSH ONE (17:32)
[2021-11-05] MEDS: Ondansetron 4 MG/2 ML SDV IVPUSH ONE (17:40)
[2021-11-05 17:42] LABS: ANION GAP 12.9 mmol/L (5-15); CHLORIDE,CL 94 mmol/L (98-107); SODIUM,NA 129 mmol/L (136-145)
[2021-11-05] MEDS ORDERED: cefTRIAXone 1 GM Vial IVPUSH ONE (18:23)
== END 2021-11-05 18:58 ==
LOC: KA.ED 16:54
DX: S72.012A Unspecified intracapsular fracture of left femur, initial encounter for closed fracture (principal); N39.0 Urinary tract infection, site not specified; E78.00 Pure hypercholesterolemia, unspecified; I10 Essential (primary) hypertension; E03.9 Hypothyroidism, unspecified; Z79.899 Other long term (current) drug therapy; W19.XXXA Unspecified fall, initial encounter
CPT/HCPCS: 36415; 51702; 72170; 73020-LT; 80048; 81001; 85025; 96374; 96375; 99284; 99285-25; J2270; J2405; J7030

== ENCOUNTER 2021-12-03 11:06 | Observation (INO) | payer MEDICARE, OTHER ==
[2021-12-03] MEDS ORDERED: Sodium Chloride 0.9% 10 ML Syringe FLUSH PRN (11:10)
[2021-12-03] MEDS ORDERED: Sodium Chloride 0.9% 1,000 ML IV ONE (11:10)
[2021-12-03 12:22] LABS: ANION GAP 9.2 mmol/L (5-15); CHLORIDE,CL 97 mmol/L (98-107); SODIUM,NA 133 mmol/L (136-145)
[2021-12-03] MEDS ORDERED: cefTRIAXone 1 GM Vial IVPUSH ONE (12:56)
[2021-12-03] MEDS ORDERED: Magnesium Hydroxide 400 MG/5 ML Susp 30 ML Cup PO PRN (16:34)
[2021-12-03] MEDS ORDERED: Sodium Chloride 0.9% 1,000 ML IV SCH (17:00)
[2021-12-03] MEDS ORDERED: DRONABINOL 2.5 MG PO SCH (17:30)
[2021-12-03] MEDS: Sodium Chloride 0.9% 1,000 ML IV SCH (18:17)
[2021-12-03] MEDS: Acetaminophen 500 MG Tab PO SCH (20:19)
[2021-12-03] MEDS: Polyethylene Glycol 3350 Powder 17 GM Packet PO SCH (20:19)
[2021-12-03] MEDS ORDERED: OXYQUINOLINE TOP SCH (21:00)
[2021-12-03] MEDS ORDERED: EMOLLIENT TOP SCH (21:00)
[2021-12-04] MEDS ORDERED: Acetaminophen 325 MG Tab PO ONE (02:44)
[2021-12-04] MEDS ORDERED: Ondansetron 4 MG/2 ML SDV IVPUSH PRN (02:45)
[2021-12-04] MEDS: Sodium Chloride 0.9% 1,000 ML IV SCH ×2 (05:35→17:37)
[2021-12-04] MEDS: Pantoprazole 20 MG Tab, Delayed Release PO SCH (07:47)
[2021-12-04] MEDS: Levothyroxine 100 MCG Tab PO SCH (07:47)
[2021-12-04 08:13] LABS: CHLORIDE,CL 99 mmol/L (98-107); SODIUM,NA 133 mmol/L (136-145)
[2021-12-04] MEDS: Acetaminophen 500 MG Tab PO SCH ×3 (08:44→20:25)
[2021-12-04] MEDS: Polyethylene Glycol 3350 Powder 17 GM Packet PO SCH ×2 (08:44→20:25)
[2021-12-04] MEDS: Tamsulosin 0.4 MG Cap.ER PO SCH (08:46)
[2021-12-04] MEDS: cefTRIAXone 1 GM Vial IVPUSH SCH (12:45)
[2021-12-04] MEDS ORDERED: Bisacodyl 10 MG Supp RECTAL ONE (14:28)
[2021-12-05] MEDS: Sodium Chloride 0.9% 1,000 ML IV SCH (05:08)
[2021-12-05] MEDS: Pantoprazole 20 MG Tab, Delayed Release PO SCH ×2 (05:11→06:08)
[2021-12-05] MEDS: Levothyroxine 100 MCG Tab PO SCH ×2 (05:11→06:32)
[2021-12-05 08:12] LABS: ANION GAP 7.1 mmol/L (5-15); CHLORIDE,CL 100 mmol/L (98-107); SODIUM,NA 133 mmol/L (136-145)
[2021-12-05] MEDS: Acetaminophen 500 MG Tab PO SCH (08:54)
[2021-12-05] MEDS: Tamsulosin 0.4 MG Cap.ER PO SCH (08:55)
[2021-12-05] MEDS: Polyethylene Glycol 3350 Powder 17 GM Packet PO SCH (08:56)
[2021-12-05] MEDS ORDERED: Potassium Chloride 20 MEQ Tab.ER PO ONE (08:59)
[2021-12-05 11:31] VITALS: BP 128/68; PULSE 81
[2021-12-05] MEDS: cefTRIAXone 1 GM Vial IVPUSH SCH (11:57)
[2021-12-05] MEDS ORDERED: Bisacodyl 10 MG Supp RECTAL ONE (12:00)
[2021-12-05] MEDS ORDERED: Cefdinir 300 MG Cap PO ONE (13:00)
== END 2021-12-05 14:00 ==
LOC: KA.ED 11:06 → KA.MS 13:18
PROVIDERS: ADMIT Physician Assistant Medical; ATTEND Nurse Practitioner Family
DX: N39.0 Urinary tract infection, site not specified (principal); R11.2 Nausea with vomiting, unspecified; K59.00 Constipation, unspecified; N81.10 Cystocele, unspecified; G30.9 Alzheimer's disease, unspecified; F02.80 Dementia in other diseases classified elsewhere, unspecified severity, without behavioral disturbance, psychotic disturbance, mood disturbance, and anxiety; E78.00 Pure hypercholesterolemia, unspecified; I10 Essential (primary) hypertension; E03.9 Hypothyroidism, unspecified; R74.01 Elevation of levels of liver transaminase levels; R00.0 Tachycardia, unspecified; E46 Unspecified protein-calorie malnutrition; E88.09 Other disorders of plasma-protein metabolism, not elsewhere classified; N99.89 Other postprocedural complications and disorders of genitourinary system; Z66 Do not resuscitate; I95.9 Hypotension, unspecified; R74.8 Abnormal levels of other serum enzymes; Z20.822 Contact with and (suspected) exposure to COVID-19; Z79.890 Hormone replacement therapy
CPT/HCPCS: 36415; 51702; 71045; 80053; 81001; 83605; 83690; 83735; 85025; 87040; 87086; 87088; 87186; 96374; 96375; 96376; 99284; 99285-25; A9270-GY; G0378; J0696; J2405; J7030; U0002

== ENCOUNTER 2022-02-11 16:11 | Emergency (ER) | payer MEDICARE, OTHER ==
[2022-02-11] MEDS ORDERED: cefTRIAXone 1 GM Vial IVPUSH ONE (17:36)
[2022-02-11] MEDS ORDERED: Ondansetron 4 MG/2 ML SDV IVPUSH ONE (18:00)
[2022-02-11] MEDS ORDERED: Labetalol 100 MG/20 ML MDV IVPUSH ONE (18:05)
[2022-02-11] MEDS ORDERED: Sodium Chloride 0.9% 500 ML IV SCH (18:15)
[2022-02-12 03:02] VITALS: BP 137/79; PULSE 84
== END 2022-02-11 19:34 ==
LOC: KA.ED 16:11
DX: N39.0 Urinary tract infection, site not specified (principal); I10 Essential (primary) hypertension; E03.9 Hypothyroidism, unspecified; Z79.899 Other long term (current) drug therapy; Z90.49 Acquired absence of other specified parts of digestive tract; Z90.710 Acquired absence of both cervix and uterus; W19.XXXA Unspecified fall, initial encounter
CPT/HCPCS: 70450; 73502; 81001; 87086; 87088; 87186; 96374; 96375; 99284; J0696; J2405; J7040; J3490